=== PATIENT | female | born 1990 ===

== ENCOUNTER 2020-01-06 09:06 | Day surgery (SDC) | payer OTHER ==
[~2020-01-06 09:06] MED LIST: MULTIPLE VITAM1 EACH PO
== END 2020-01-06 21:25 | disposition home or self-care (01) ==
LOC: CIR.AMB 09:06
PROVIDERS: ATTEND Obstetrics & Gynecology
DX: N84.0 Polyp of corpus uteri (principal); Z20.828 Contact with and (suspected) exposure to other viral communicable diseases

== ENCOUNTER 2021-01-25 12:12 | Day surgery (SDC) | payer OTHER | END 2021-01-26 08:00 | disposition home or self-care (01) | LOC: CIR.AMB 12:12 | PROVIDERS: ATTEND Obstetrics & Gynecology | DX: O02.1 Missed abortion (principal); Z20.822 Contact with and (suspected) exposure to COVID-19 ==